=== PATIENT | female | born 1980 | race African-American/Black ===

== ENCOUNTER 2016-09-13 18:03 | Emergency (ER) | payer OTHER, MEDICAID ==
[2016-09-13 18:19] VITALS: BP 125/71
[2016-09-13] MEDS ORDERED: PREDNISONE 20 MG TABLET PO ONE (18:24)
[2016-09-13] MEDS ORDERED: FAMOTIDINE 20 MG TABLET PO ONE (18:24)
--- NOTE | 2016-09-13 18:25 | ER Document Report ---
ED Medical Screen (RME) - General Stated Complaint: TOOTH PAIN Mode of Arrival: Ambulatory Information source: Patient Notes: Patient complains of dental pain for the past 4 days. Patient with bilateral lower cheek swelling for the past 4 days. Patient denies any skin rash or itching. Patient does state that she was using a spray glaze recently to paint , and has been the only new chemical that she has come in contact with hx: Hypothyroid, fibromyalgia I have greeted and performed a rapid initial assessment of this patient. A comprehensive ED assessment and evaluation of the patient, analysis of test results and completion of the medical decision making process will be conducted by additional ED providers. TRAVEL OUTSIDE OF THE [place] IN LAST 30 DAYS: No - Related Data Allergies/Adverse Reactions: aspirin [Aspirin] Allergy (Severe, Verified 09/13/16 18:22) Swelling of face ibuprofen [From Motrin] Allergy (Verified 09/13/16 18:22) SWELLING OF FACE Past Medical History - Past Medical History Cardiac Medical History: Denies: Hx Coronary Artery Disease, Hx Heart Attack, Hx Hypertension Pulmonary Medical History: Denies: Hx Asthma, Hx Bronchitis, Hx COPD, Hx Pneumonia Neurological Medical History: Reports: Hx Migraine. 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, Chip Carpal Tunnel Syndrome Past Surgical History: Reports: Hx Section - x3, Hx Orthopedic Surgery - right foot - Immunizations Hx Diphtheria, Pertussis, Tetanus Vaccination: Yes Physical Exam - Vital signs Vitals: Temp Pulse Resp BP Pulse Ox 98.9 F 85 16 125/71 99 09/13/16 18:15 09/13/16 18:15 09/13/16 18:15 09/13/16 18:15 09/13/16 18:15 - General Notes: Patient with subtle swelling to bilateral lower mandibular area, patient with subtle fullness to submental area, no potential airway compromise Course - Vital Signs Vital signs: Temp Pulse Resp BP Pulse Ox 98.9 F 85 16 125/71 99 09/13/16 18:15 09/13/16 18:15 09/13/16 18:15 09/13/16 18:15 09/13/16 18:15
--- NOTE | 2016-09-13 21:03 | ER Document Report ---
[id number] PAIN Mode of Arrival: Ambulatory Information source: Patient Notes: 36-year-old female presents with complaints of right lower dental pain that started 2 days prior. Patient notes it hurts to cold and hot. Patient noted some swelling to bilateral jaws denies any difficulty breathing or swallowing Patient denies any fevers or chills notes her teeth don't hurt as much now TRAVEL OUTSIDE OF THE [place] IN LAST 30 DAYS: No - HPI Onset: Other Onset/Duration: Intermittent Quality of pain: Sharp Severity: Mild Pain Level: 1 Associated symptoms: None Exacerbated by: Denies Relieved by: Denies Similar symptoms previously: No Recently seen / treated by doctor: No - Related Data Allergies/Adverse Reactions: aspirin [Aspirin] Allergy (Severe, Verified 09/13/16 18:22) Swelling of face ibuprofen [From Motrin] Allergy (Verified 09/13/16 18:22) SWELLING OF FACE Past Medical History - General Information source: Patient - Social History Smoking Status: Unknown if Ever Smoked Cigarette use (# per day): No Chew tobacco use (# tins/day): No Smoking Education Provided: No Frequency of alcohol use: None Drug Abuse: None Family History: Reviewed & Not Pertinent, DM, Hypertension, Other Patient has suicidal ideation: No Patient has homicidal ideation: No - Past Medical History Cardiac Medical History: Denies: Hx Coronary Artery Disease, Hx Heart Attack, Hx Hypertension Pulmonary Medical History: Denies: Hx Asthma, Hx Bronchitis, Hx COPD, Hx Pneumonia Neurological Medical History: Reports: Hx Migraine. 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 Denies recent illness. EENT: Admits to dental pain CARDIOVASCULAR: Denies chest pain. Denies palpitations or racing or irregular heart beat. Denies ankle edema. RESPIRATORY: Denies cough, cold, or chest congestion. Denies shortness of breath, difficulty breathing, or wheezing. GASTROINTESTINAL: Denies abdominal pain or distention. Denies nausea, vomiting , or diarrhea. Denies blood in vomitus, stools, or per rectum. Denies black, tarry stools. Denies constipation. GENITOURINARY: Denies difficulty urinating, painful urination, burning, frequency, blood in urine, or discharge. FEMALE GENITOURINARY: Denies vaginal bleeding, heavy or abnormal periods, irregular periods. Denies vaginal discharge or odor. MUSCULOSKELETAL: Denies back or neck pain or stiffness. Denies joint pain or swelling. SKIN: Denies rash, lesions or sores. HEMATOLOGIC : Denies easy bruising or bleeding. LYMPHATIC: Denies swollen, enlarged glands. NEUROLOGICAL: Denies confusion or altered mental status. Denies passing out or loss of consciousness. Denies dizziness or lightheadedness. Denies headache. Denies weakness or paralysis or loss of use of either side. Denies problems with gait or speech. Denies sensory loss, numbness, or tingling. Denies seizures. PSYCHIATRIC: Denies anxiety or stress. Denies depression, suicidal ideation, or homicidal ideation. ALL OTHER SYSTEMS REVIEWED AND NEGATIVE. Dictation was performed using [employer] voice recognition software PHYSICAL EXAMINATION: GENERAL: Well-appearing, well-nourished and in no acute distress. HEAD: Atraumatic, normocephalic. EYES: Pupils equal round extraocular movements intact, conjunctiva are normal. ENT: Nares patent NECK: Normal range of motion LUNGS: No respiratory distress Musculoskeletal: Normal range of motion NEUROLOGICAL: Normal speech, normal gait. PSYCH: Normal mood, normal affect. SKIN: Warm, Dry, normal turgor, no rashes or lesions noted. Physical Exam - Vital signs Vitals: Temp Pulse Resp BP Pulse Ox 98.9 F 85 16 125/71 99 09/13/16 18:15 09/13/16 18:15 09/13/16 18:15 09/13/16 18:15 09/13/16 18:15 Course - Re-evaluation Re-evalutation: 09/14/16 00:01 Physical examination notes no significant abnormality, patient's otherwise stable, I will treat her with antibiotics given dental pain and have her follow- up with her dentist in 1 week. No obvious swelling noted airways patent After performing a Medical Screening Examination, I estimate there is LOW risk for a DEEP SPACE INFECTION (e.g., GAY'S ANGINA OR RETROPHARYNGEAL ABSCESS), MENINGITIS, INTRACRANIAL HEMORRHAGE, or AIRWAY COMPROMISE, thus I consider the discharge disposition reasonable. Also, there is no evidence or peritonitis, sepsis, or toxicity. The patient and I have discussed the diagnosis and risks, and we agree with discharging home with close follow-up with the understanding that symptoms and presentations can change. We also discussed returning to the Emergency Department immediately if new or worsening symptoms occur. We have discussed the symptoms which are most concerning (e.g., changing or worsening pain, trouble swallowing or breathing, neck stiffness or fever) that necessitate immediate return. - Vital Signs Vital signs: Temp Pulse Resp BP Pulse Ox 98.9 F 85 16 125/71 99 09/13/16 18:15 09/13/16 18:15 09/13/16 18:15 09/13/16 18:15 09/13/16 18:15 Discharge - Discharge Clinical Impression: Pain, dental Condition: Stable Disposition: HOME, SELF-CARE Instructions: Penicillin V K (OM), Toothache ([facility]) Additional Instructions: Please follow up with your dentist in 1 week for further care or return immediately if symptoms worsen. Prescriptions: Penicillin V Potassium [Penicillin Vk 500 mg Tablet] 500 mg PO BID #20 tablet Referrals: LORENZO BROWNLEE MD [Primary Care Provider] - Follow up as needed
== END 2016-09-13 21:10 | disposition home or self-care (01) ==
LOC: ER 18:03
DX: K08.9 Disorder of teeth and supporting structures, unspecified (principal); E03.9 Hypothyroidism, unspecified; Z88.6 Allergy status to analgesic agent
CPT/HCPCS: 99283; J7512

== ENCOUNTER 2018-02-13 16:03 | Emergency (ER) | payer OTHER, MEDICAID ==
[2018-02-13 16:09] VITALS: BP 126/83
[2018-02-13] MEDS ORDERED: NYSTATIN 500000 UNIT/5 ML UDCUP PO ONE (17:01)
--- NOTE | 2018-02-13 17:09 | ER Document Report ---
ED Oral Problem - General Chief Complaint: Bleeding Gums Stated Complaint: MOUTH PAIN Time Seen by Provider: 02/13/18 16:34 Mode of Arrival: Ambulatory Information source: Patient Notes: 37-year-old female presents to ED for pain redness and excoriation behind the upper teeth away from one side to the other. She stated that about a day or 2 ago she was not able to sleep so she kept on doing her packing to get ready to go. She states she developed some redness behind her teeth and was concerned so she used mouthwash then peroxide on the mouth got worse. She states she was concerned because someone told her that it might be cxlh-lwpb-gmt-mouth disease. She does not have any rash anywhere else. The only place the rash she is is just at the teeth . This is not kgoi-gtze-fjn-mouth. TRAVEL OUTSIDE OF THE [place] IN LAST 30 DAYS: No - HPI Patient complains to provider of: Other - Redness excoriation to the gums on the upper jaw from one side of her teeth to the other Onset: Gradual Quality of pain: Burning Severity: Moderate Pain Level: 4 Associated symptoms: Other - Red excoriated gums upper jaw Relieved by: Nothing Similar symptoms previously: No Recently seen / treated by doctor/dentist: No - Related Data Allergies/Adverse Reactions: aspirin [Aspirin] Allergy (Severe, Verified 02/13/18 16:04) Swelling of face ibuprofen [From Motrin] Allergy (Verified 02/13/18 16:04) SWELLING OF FACE Past Medical History - General Information source: Patient - Social History Smoking Status: Never Smoker Cigarette use (# per day): No Chew tobacco use (# tins/day): No Smoking Education Provided: No Frequency of alcohol use: None Drug Abuse: None Occupation: Disabled Lives with: Family Family History: Reviewed & Not Pertinent, DM, Hypertension, Other Patient has suicidal ideation: No Patient has homicidal ideation: No - Past Medical History Cardiac Medical History: Reports: None Pulmonary Medical History: Reports: None EENT Medical History: Reports: None Neurological Medical History: Reports: None Endocrine Medical History: Reports: Hx Hypothyroidism Renal/ Medical History: Reports: None Malignancy Medical History: Reports: None GI Medical History: Reports: None Musculoskeltal Medical History: 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, Chip Carpal Tunnel Syndrome, Reports Hx Fibromyalgia, Reports Hx Musculoskeletal Deformity, Reports Other - Nerve release to the left hip Skin Medical History: Reports None Psychiatric Medical History: Reports: None Traumatic Medical History: Reports: None Infectious Medical History: Reports: None Past Surgical History: Reports: Hx Section - x3, Hx Hysterectomy, Hx Oral Surgery, Hx Orthopedic Surgery - right foot plantar fasciitis, hip cord release, - Immunizations Hx Diphtheria, Pertussis, Tetanus Vaccination: Yes Review of Systems - Review of Systems Constitutional: No symptoms reported EENT: Mouth pain - Excoriated area to the gums behind the upper teeth Cardiovascular: No symptoms reported Respiratory: No symptoms reported Gastrointestinal: No symptoms reported Genitourinary: No symptoms reported Female Genitourinary: No symptoms reported Musculoskeletal: No symptoms reported Skin: No symptoms reported Hematologic/Lymphatic: No symptoms reported Neurological/Psychological: No symptoms reported -: Yes All other systems reviewed and negative Physical Exam - Vital signs Vitals: Temp Pulse Resp BP Pulse Ox 98.8 F 78 14 126/83 H 98 02/13/18 16:08 02/13/18 16:08 02/13/18 16:08 02/13/18 16:08 02/13/18 16:08 Interpretation: Normal - General General appearance: Appears well, Alert - HEENT Head: Normocephalic, Atraumatic Eyes: Normal Pupils: PERRL Ears: Normal External canal: Normal Tympanic membrane: Normal Sinus: Normal Nasal: Normal Mouth/Lips: Other - Excoriated area behind the teeth on the upper jaw. Pharynx: Normal Neck: Anterior cervical chain - Respiratory Respiratory status: No respiratory distress Chest status: Nontender Breath sounds: Normal Chest palpation: Normal - Cardiovascular Rhythm: Regular Heart sounds: Normal auscultation Murmur: No - Abdominal Inspection: Normal Distension: No distension Bowel sounds: Normal Tenderness: Nontender Organomegaly: No organomegaly - Back Back: Normal, Nontender - Extremities General upper extremity: Normal inspection, Nontender, Normal color, Normal ROM , Normal temperature General lower extremity: Normal inspection, Nontender, Normal color, Normal ROM , Normal temperature, Normal weight bearing. No: Octavio's sign - Neurological Neuro grossly intact: Yes Cognition: Normal Orientation: AAOx4 [place] Coma Scale Eye Opening: Spontaneous José [place] Coma Scale Verbal: Oriented [place] Coma Scale Motor: Obeys Commands [place] Coma Scale Total: 15 Speech: Normal Motor strength normal: LUE, RUE, LLE, RLE Sensory: Normal - Psychological Associated symptoms: Normal affect, Normal mood - Skin Skin Temperature: Warm Skin Moisture: Dry Skin Color: Normal Course - Re-evaluation Re-evalutation: 02/13/18 17:[address] Orlando concerning this excoriated gingivitis to the upper palate. He stated that I should do as I previously planned with the viscous lidocaine and the Magic mouthwash but I should also treat her with Penicillin VK. I will write her for 7 days of Penicillin VK. Patient has been instructed to go to the dentist promptly tomorrow either by telephone or to go to the herself but she needs this looked at by his dentist. She verbalized understanding of instructions and agreement with treatment plan. - Vital Signs Vital signs: Temp Pulse Resp BP Pulse Ox 98.8 F 78 14 126/83 H 98 02/13/18 16:08 02/13/18 16:08 02/13/18 16:08 02/13/18 16:08 02/13/18 16:08 Discharge - Discharge Clinical Impression: gingivitis upper palate Condition: Stable Disposition: HOME, SELF-CARE Additional Instructions: You have gingivitis or an infection to the upper palate just behind the teeth on the upper jaw. You will need to gargle with warm salt and soda solution and then usual Magic mouthwash as instructed. You can also use a small amount of the lidocaine jelly that you have been provided to rub on the excoriated area. Please go to your dentist in the morning to follow-up. 1 quart of water 1 tablespoon of salt 1 teaspoon of baking soda Mixed 3 ingredients together and boil for 1 minute Placed in a covered quart jar Use 1/2 ounce of cold solution to gargle 3 times a day Penicillin VK You have been given a prescription for Penicillin VK. Your physician has determined that this is the best antibiotic for your condition. Pen VK can be taken with meals, however more of the antibiotic gets into the bloodstream if it's taken on an empty stomach. Penicillin usually has no side effects. However, allergy to penicillins is common. If you have had an allergic reaction to any drug of the penicillin family, you should never take any other penicillin. Notify your doctor at once if you develop hives, itching, swelling, faintness, or shortness of breath. Acetaminophen Acetaminophen may be taken for pain relief or fever control. It's much safer than aspirin, offering a wider range of "safe" dosages. It is safe during . Some brand names are Tylenol, Panadol, Datril, Anacin 3, Tempra, and Liquiprin. Acetaminophen can be repeated every four hours. The following are maximum recommended dosages: WEIGHT Dose Drops Elixir Chewable( 80mg) (LBS.) drprs=droppers tsp=teaspoon 6 40 mg .4 ml (1/2) 6-11 80 mg .8 ml (full) 1/2 tsp 1 tab 12-16 120 mg 1 1/2 drprs 3/4 tsp 1 1/2 tabs 17-23 160 mg 2 drprs 1 tsp 2 tabs 24-30 240 mg 3 drprs 1 1/2 tsp 3 tabs 30-35 320 mg 2 tsp 4 tabs 36-41 360 mg 2 1/4 tsp 4 1 /2 tabs 42-47 400 mg 2 1/2 tsp 5 tabs 48-53 480 mg 3 tsp 6 tabs 54-59 520 mg 3 1/4 tsp 6 1 /2 tabs 60-64 560 mg 3 1/2 tsp 7 tabs 65-70 600 mg 3 3/4 tsp 7 1 /2 tabs 71-76 640 mg 4 tsp 8 tabs 77-82 720 mg 4 1/2 tsp 9 tabs 83-88 800 mg 5 tsp 10 tabs >89 pounds or adults 650 mg to 900 mg Acetaminophen can be repeated every four hours. Maximum daily dose not to exceed 4000 mg. These maximum recommended dosages are slightly higher than the dosages written on the product container, but these dosages are very safe and well below the toxic dosage for acetaminophen. These call your dentist or go to your dentist office first thing tomorrow to schedule a follow-up appointment for this infection to your upper palate. FOLLOW-UP CARE: If you have been referred to a physician for follow-up care, call the physician s office for an appointment as you were instructed or within the next two days. If you experience worsening or a significant change in your symptoms, notify the physician immediately or return to the Emergency Department at any time for re-evaluation. Prescriptions: Nystatin/Dexameth/Diphen [Magic Mouthwash (Omh Formula) Susp] 5 ml PO QID #120 ml Penicillin V Potassium [Penicillin Vk 500 mg Tablet] 500 mg PO BID #20 tablet Forms: Elevated Blood Pressure Referrals: LORENZO BROWNLEE MD [Primary Care Provider] - Follow up as needed
[2018-02-13] MEDS ORDERED: PENICILLIN V POTASSIUM 500 MG TABLET PO ONE (17:13)
[2018-02-13] MEDS ORDERED: LIDOCAINE 2% VISCOUS SOLN 20 ML UDCUP PO ONE (17:14)
== END 2018-02-13 17:27 | disposition home or self-care (01) ==
LOC: ER 16:03
DX: K05.10 Chronic gingivitis, plaque induced (principal); Z88.6 Allergy status to analgesic agent; Z90.710 Acquired absence of both cervix and uterus
CPT/HCPCS: 99282; J3490

== ENCOUNTER → 2018-12-09 | Outpatient (CLI) | payer MEDICAID, MEDICARE, OTHER ==
--- NOTE | 2018-12-09 11:20 | RADIOLOGY REPORT (SQ) ---
EXAM DESCRIPTION: CHEST SINGLE VIEW COMPLETED DATE/TIME: 12/09/2018 11:12 am REASON FOR STUDY: MORBID (SEVERE) OBESITY DUE TO EXCESS CALORIES COMPARISON: 04/06/2016 EXAM PARAMETERS: NUMBER OF VIEWS: One view. TECHNIQUE: Single frontal radiographic view of the chest acquired. RADIATION DOSE: NA LIMITATIONS: None. FINDINGS: LUNGS AND PLEURA: No opacities, masses or pneumothorax. No pleural effusion. MEDIASTINUM AND HILAR STRUCTURES: No masses. Contour normal. HEART AND VASCULAR STRUCTURES: Heart normal in size. Normal vasculature. BONES: No acute findings. HARDWARE: None in the chest. OTHER: No other significant finding. IMPRESSION: NO ACUTE RADIOGRAPHIC FINDING IN THE CHEST. TECHNICAL DOCUMENTATION: JOB ID: [id number] [employer]- All Rights Reserved Reading location - IP/workstation name: [email or web address]
[2018-12-09 11:31] LABS: ABSOLUTE BASOPHILS # (AUTO) 0.1 10^3/uL (0.0-0.2); ABSOLUTE EOSINOPHILS # (AUTO) 0.2 10^3/uL (0.0-0.6); ABSOLUTE LYMPHOCYTES (AUTO) 1.8 10^3/uL (0.5-4.7); ABSOLUTE MONOCYTES (AUTO) 0.4 10^3/uL (0.1-1.4); ABSOLUTE NEUT (AUTO) 4.2 10^3/uL (1.7-8.2); EOSINOPHILS % (AUTO) 3.4 % (0-6); HEMATOCRIT 37.2 % (36.0-47.0); HEMOGLOBIN 12.3 g/dL (12.0-15.5); LYMPHOCYTES % (AUTO) 26.6 % (13-45); MEAN CORPUSCULAR HEMOGLOBIN 27.4 pg (27.0-33.4); MEAN CORPUSCULAR HGB CONC 32.9 g/dL (32.0-36.0); MEAN CORPUSCULAR VOLUME 83 fl (80-97); MONOCYTES % (AUTO) 5.8 % (3-13); PLATELET COUNT 273 10^3/uL (150-450); RED BLOOD COUNT 4.49 10^6/uL (3.72-5.28); SEGMENTED NEUTROPHILS % (AUTO) 63.2 % (42-78); TOTAL CELLS COUNTED % (AUTO) 100 %; WHITE BLOOD COUNT 6.6 10^3/uL (4.0-10.5)
[2018-12-09 12:02] LABS: ANION GAP 6 (5-19); BLOOD UREA NITROGEN 10 mg/dL (7-20); CARBON DIOXIDE 27 mmol/L (22-30); CHLORIDE 107 mmol/L (98-107); GLUCOSE 84 mg/dL (75-110); POTASSIUM 4.5 mmol/L (3.6-5.0); SODIUM 140.2 mmol/L (137-145)
--- NOTE | 2018-12-09 18:45 | EKG REPORT ---
SEVERITY:- NORMAL ECG - SINUS RHYTHM : Confirmed by: Elena Hung 09-Dec-2018 18:43:54
== END ==
LOC: OD 10:49
PROVIDERS: ATTEND Surgery
DX: E03.9 Hypothyroidism, unspecified (principal); E66.01 Morbid (severe) obesity due to excess calories
CPT/HCPCS: 36415; 71045; 80048; 84443; 85025; 93005; 93010

== ENCOUNTER → 2018-12-23 | Outpatient (CLI) | payer MEDICARE ==
--- NOTE | 2018-12-23 10:54 | RADIOLOGY REPORT (SQ) ---
EXAM DESCRIPTION: U/S ABDOMEN LIMITED W/O DOP COMPLETED DATE/TIME: 12/23/2018 7:58 am REASON FOR STUDY: RUQ PAIN (R10.11) R10.11 RIGHT UPPER QUADRANT PAIN COMPARISON: Renal ultrasound 02/13/2013 TECHNIQUE: Dynamic and static grayscale images acquired of the abdomen and recorded on PACS. Additio nal selected color Doppler and spectral images recorded. LIMITATIONS: Body habitus, bowel gas FINDINGS: PANCREAS: Not visualized LIVER: No masses. Normal size. Increased echogenicity from fatty infiltration. LIVER VASCULATURE: Normal directional flow of the main portal vein and hepatic veins. GALLBLADDER: No stones. Normal wall thickness. No pericholecystic fluid. ULTRASOUND-DETECTED BOSCH'S SIGN: Negative. INTRAHEPATIC DUCTS AND COMMON DUCT: CBD and intrahepatic ducts normal caliber. No filling defects. INFERIOR VENA CAVA: Normal flow. AORTA: No aneurysm. RIGHT KIDNEY: Normal size. Normal echogenicity. No solid or suspicious masses. No hydronephrosis. No calcifications. PERITONEAL AND RIGHT PLEURAL SPACE: No ascites or effusions. OTHER: No other significant findings. IMPRESSION: Fatty liver. No gallstones. TECHNICAL DOCUMENTATION: JOB ID: [id number] [employer]- All Rights Reserved Reading location - IP/workstation name: [email or web address]
== END ==
LOC: RAD 07:24
PROVIDERS: ATTEND Surgery
DX: R10.11 Right upper quadrant pain (principal)
CPT/HCPCS: 76705